=== PATIENT | female | born 1975 | race Caucasian/White ===

== ENCOUNTER 2020-08-20 02:51 | Inpatient (IN) ==
[2020-08-20] MEDS ORDERED: NICOTINE 21 MG/24 HR PATCH TRANSDERM PRN (06:09)
[2020-08-20] MEDS ORDERED: ONDANSETRON 4 MG/2 ML VIAL IV PRN (06:09)
[2020-08-20] MEDS ORDERED: DEXTROSE 50% 25 GM/50 ML VIAL IV PRN ×2 (06:09→07:42)
[2020-08-20] MEDS ORDERED: hydrALAZINE 20 MG/1 ML VIAL IV PRN (06:09)
[2020-08-20] MEDS ORDERED: guaiFENesin/DM ER 600-30 MG TABLET PO PRN (06:09)
[2020-08-20] MEDS ORDERED: MORPHINE 4 MG/1 ML VIAL IV PRN (06:09)
[2020-08-20] MEDS ORDERED: diphenhydrAMINE CAP 25 MG CAPSULE PO PRN (06:09)
[2020-08-20] MEDS ORDERED: GLUCAGON 1 MG VIAL IM PRN ×2 (06:09→07:42)
[2020-08-20 06:57] LABS: Basophils % 0.3 % (0.0-0.8); Eosinophils % 0.1 % (0.00-10.9); Hematocrit 24.3 VOL% (35.7-47.0); Hemoglobin 8.2 GM/DL (12.0-16.0); Immature Granulocytes % 0.4 %; Immature Granulocytes Absolute 0.06 #; Lymphocytes # 3.4 10*3/uL (1.4-4.0); Lymphocytes % 24.7 % (21.3-54.2); Mean Corpuscular HGB Conc 33.7 GM/DL (32-36); Mean Corpuscular Volume 93.8 FL (87-102); Mean Platelet Volume 9.8 FL (9.6-12.0); Monocytes % 4.7 % (1.7-12.7); Neutrophils % 69.8 % (38.7-73.9); Platelet Count 256 T/CUMM (130-400); Red Blood Count 2.59 MC/CUMM (3.8-5.5); White Blood Count 13.8 T/CUMM (4-12)
[2020-08-20 07:09] LABS: Calcium 8.1 MG/DL (8.5-10.1); Osmolality,Calculated 286.1 MOS/KG (273-304); PT Patient Result 11.6 SECS (10.5-12.0); Partial Thromboplastin Time 20.8 SECS (23.9-33.8); Potassium 3.8 MMOL/L (3.5-5.1)
[2020-08-20 07:12] LABS: Alanine Aminotransferase 15 U/L (13-56); Albumin 2.8 G/DL (3.4-5.0); Alkaline Phosphatase 30 U/L (45-117); Aspartate Amino Transferase 12 U/L (0-37); Bilirubin,Direct < 0.100 MG/DL (0.0-0.20); Bilirubin,Indirect 0.4 MG/DL (0.0-1.0); Total Protein 5.2 G/DL (6.4-8.2)
[2020-08-20 08:39] LABS: Hematocrit 24.2 VOL% (35.7-47.0)
[2020-08-20] MEDS: PANTOPRAZOLE INJ 200 MG in SODIUM CHLORIDE 0.9% 250 ML IV SCH (08:56)
[2020-08-20] MEDS: DEXT 5% NACL 0.9% KCL 20 MEQ 20 MEQ/1,000 ML BAG IV SCH ×2 (08:56→21:13)
[2020-08-20] MEDS ORDERED: FAMOTIDINE 20 MG/2 ML VIAL IV SCH (09:00)
[2020-08-20 20:06] LABS: Hematocrit 20.9 VOL% (35.7-47.0)
[2020-08-21 07:34] LABS: Basophils % 0.4 % (0.0-0.8); Eosinophils # 0.2 10*3/uL (0.0-0.87); Immature Granulocytes % 0.4 %; Immature Granulocytes Absolute 0.03 #; Lymphocytes # 2.6 10*3/uL (1.4-4.0); Mean Corpuscular HGB Conc 34.5 GM/DL (32-36); Mean Corpuscular Volume 95.2 FL (87-102); Mean Platelet Volume 10.1 FL (9.6-12.0); Monocytes % 6.4 % (1.7-12.7); Neutrophils % 58.8 % (38.7-73.9); Platelet Count 196 T/CUMM (130-400); Red Blood Count 1.86 MC/CUMM (3.8-5.5); Red Cell Distribution Width 12.3 % (9.3-17.3)
[2020-08-21 07:38] LABS: Hematocrit 17.7 VOL% (35.7-47.0); Hemoglobin 6.1 GM/DL (12.0-16.0)
[2020-08-21] MEDS ORDERED: SODIUM CHLORIDE 0.9% 1,000 ML IV PRN (07:42)
[2020-08-21] MEDS: ESCITALOPRAM 10 MG TABLET PO SCH (08:52)
[2020-08-21 09:05] LABS: Calcium 7.6 MG/DL (8.5-10.1)
[2020-08-21 09:09] LABS: Osmolality,Calculated 286.8 MOS/KG (273-304); Potassium 4.4 MMOL/L (3.5-5.1)
[2020-08-21 09:29] LABS: Hematocrit 17.6 VOL% (35.7-47.0); Hemoglobin 5.8 GM/DL (12.0-16.0)
[2020-08-21] MEDS ORDERED: LIDOCAINE 2% 5 ML VIAL ONE (14:17)
[2020-08-21] MEDS ORDERED: ETOMIDATE 20 MG/10 ML VIAL IV ONE (14:17)
[2020-08-21] MEDS ORDERED: propofoL 200 MG/20 ML VIAL IV ONE (14:17)
[2020-08-21] MEDS: BISACODYL 5 MG TABLET PO SCH ×2 (17:20→21:42)
[2020-08-21] MEDS: PANTOPRAZOLE INJ 200 MG in SODIUM CHLORIDE 0.9% 250 ML IV SCH (17:20)
[2020-08-21] MEDS: DEXT 5% NACL 0.9% KCL 20 MEQ 20 MEQ/1,000 ML BAG IV SCH (17:21)
[2020-08-21 17:49] LABS: Hematocrit 27.7 VOL% (35.7-47.0); Hemoglobin 9.3 GM/DL (12.0-16.0)
[2020-08-21] MEDS ORDERED: POLYETHYLENE GLYCOL POWDER 255 GM BOTTLE PO ONE (18:00)
[2020-08-21 20:09] LABS: Hematocrit 26.7 VOL% (35.7-47.0); Hemoglobin 8.9 GM/DL (12.0-16.0)
[2020-08-21] MEDS ORDERED: MAGNESIUM CITRATE 300 ML BOTTLE PO ONE (21:00)
[2020-08-22] MEDS: DEXT 5% NACL 0.9% KCL 20 MEQ 20 MEQ/1,000 ML BAG IV SCH ×2 (01:06→06:22)
[2020-08-22] MEDS: BISACODYL 5 MG TABLET PO SCH (05:41)
[2020-08-22 06:00] LABS: Calcium 7.3 MG/DL (8.5-10.1)
[2020-08-22 06:15] LABS: Osmolality,Calculated 288.7 MOS/KG (273-304); Potassium 3.8 MMOL/L (3.5-5.1)
[2020-08-22] MEDS: LACTATED RINGERS 1,000 ML IV SCH (07:02)
[2020-08-22 07:27] LABS: Hematocrit 23.1 VOL% (35.7-47.0); Hemoglobin 7.6 GM/DL (12.0-16.0)
[2020-08-22] MEDS ORDERED: fentaNYL 100 MCG/2 ML VIAL ONE (08:04)
[2020-08-22] MEDS ORDERED: LIDOCAINE 2% 5 ML VIAL ONE (08:04)
[2020-08-22] MEDS ORDERED: propofoL 200 MG/20 ML VIAL IV ONE (08:04)
[2020-08-22] MEDS: ESCITALOPRAM 10 MG TABLET PO SCH (10:07)
[2020-08-22 10:17] LABS: Basophils % 0.2 % (0.0-0.8); Eosinophils # 0.1 10*3/uL (0.0-0.87); Eosinophils % 1.1 % (0.00-10.9); Hematocrit 24.4 VOL% (35.7-47.0); Immature Granulocytes % 0.8 %; Lymphocytes % 16.6 % (21.3-54.2); Mean Corpuscular HGB Conc 32.8 GM/DL (32-36); Mean Corpuscular Volume 96.8 FL (87-102); Mean Platelet Volume 9.7 FL (9.6-12.0); Monocytes % 4.2 % (1.7-12.7); Neutrophils % 77.1 % (38.7-73.9); Platelet Count 247 T/CUMM (130-400); Red Blood Count 2.52 MC/CUMM (3.8-5.5); Red Cell Distribution Width 13.8 % (9.3-17.3); White Blood Count 12.3 T/CUMM (4-12)
[2020-08-22 10:48] LABS: % Iron Saturation 12.3 % (18-50); Ferritin 14.8 ng/ml (8-252)
[2020-08-22 11:04] LABS: Folate 16.41 NG/ML (5.38-24.0); Vitamin B12 298 PG/ML (211-911)
[2020-08-22 11:24] LABS: Sedimentation Rate-Westergren 11 MM/HR (0-20)
[2020-08-23] MEDS: PANTOPRAZOLE INJ 200 MG in SODIUM CHLORIDE 0.9% 250 ML IV SCH ×2 (01:15→11:49)
[2020-08-23] MEDS: DEXT 5% NACL 0.9% KCL 20 MEQ 20 MEQ/1,000 ML BAG IV SCH ×4 (01:15→17:19)
[2020-08-23] MEDS: LACTATED RINGERS 1,000 ML IV SCH (06:32)
[2020-08-23 06:50] LABS: Basophils % 0.3 % (0.0-0.8); Eosinophils # 0.4 10*3/uL (0.0-0.87); Eosinophils % 4.6 % (0.00-10.9); Immature Granulocytes % 0.6 %; Immature Granulocytes Absolute 0.05 #; Lymphocytes # 2.5 10*3/uL (1.4-4.0); Lymphocytes % 28.3 % (21.3-54.2); Mean Corpuscular Volume 96.4 FL (87-102); Mean Platelet Volume 10.1 FL (9.6-12.0); Monocytes % 4.7 % (1.7-12.7); Neutrophils % 61.5 % (38.7-73.9); Red Cell Distribution Width 14.5 % (9.3-17.3); White Blood Count 8.7 T/CUMM (4-12)
[2020-08-23 07:03] LABS: Calcium 7.3 MG/DL (8.5-10.1); Osmolality,Calculated 290.4 MOS/KG (273-304); Potassium 3.9 MMOL/L (3.5-5.1)
[2020-08-23 07:05] LABS: Platelet Count 197 T/CUMM (130-400); Red Blood Count 1.65 MC/CUMM (3.8-5.5)
[2020-08-23 07:07] LABS: Hemoglobin 5.4 GM/DL (12.0-16.0)
[2020-08-23 07:08] LABS: Hematocrit 15.9 VOL% (35.7-47.0)
[2020-08-23] MEDS ORDERED: SODIUM CHLORIDE 0.9% 1,000 ML IV PRN (07:10)
[2020-08-23] MEDS ORDERED: BUTALBITAL/ACETAMIN/CAFFEINE 50-325-40 MG TABLET PO PRN (08:05)
[2020-08-23 08:53] LABS: Hemoglobin A1 (Alkaline) 97.6 % (96.5-98.5); Hemoglobin A2 (Alkaline) 2.4 % (1.5-3.5)
[2020-08-23] MEDS: ESCITALOPRAM 10 MG TABLET PO SCH (11:48)
[2020-08-23 22:35] LABS: Hemoglobin 9.9 GM/DL (12.0-16.0)
[2020-08-24 06:04] LABS: Basophils # 0.1 10*3/uL (0.0-0.2); Basophils % 0.5 % (0.0-0.8); Eosinophils # 0.5 10*3/uL (0.0-0.87); Eosinophils % 5.4 % (0.00-10.9); Hemoglobin 9.7 GM/DL (12.0-16.0); Immature Granulocytes % 0.6 %; Immature Granulocytes Absolute 0.06 #; Lymphocytes # 2.3 10*3/uL (1.4-4.0); Lymphocytes % 24.3 % (21.3-54.2); Mean Corpuscular HGB Conc 33.4 GM/DL (32-36); Mean Corpuscular Volume 89.8 FL (87-102); Mean Platelet Volume 9.9 FL (9.6-12.0); Monocytes % 5.2 % (1.7-12.7); NRBC # 0.03 10*3/uL; Platelet Count 189 T/CUMM (130-400); Red Blood Count 3.23 MC/CUMM (3.8-5.5); Red Cell Distribution Width 16.9 % (9.3-17.3); White Blood Count 9.5 T/CUMM (4-12)
[2020-08-24 06:06] LABS: Hemoglobin 9.6 GM/DL (12.0-16.0)
[2020-08-24 06:22] LABS: Calcium 7.7 MG/DL (8.5-10.1); Osmolality,Calculated 282.8 MOS/KG (273-304); Potassium 4.1 MMOL/L (3.5-5.1)
[2020-08-24] MEDS: DEXT 5% NACL 0.9% KCL 20 MEQ 20 MEQ/1,000 ML BAG IV SCH ×2 (06:41→23:24)
[2020-08-24] MEDS: PANTOPRAZOLE INJ 200 MG in SODIUM CHLORIDE 0.9% 250 ML IV SCH ×2 (06:41→10:27)
[2020-08-24] MEDS: LACTATED RINGERS 1,000 ML IV SCH ×2 (07:58→08:09)
[2020-08-24] MEDS ORDERED: propofoL 200 MG/20 ML VIAL IV ONE ×2 (08:42→08:55)
[2020-08-24] MEDS ORDERED: LIDOCAINE 2% 5 ML VIAL ONE ×2 (08:42→08:55)
[2020-08-24] MEDS: ESCITALOPRAM 10 MG TABLET PO SCH (10:20)
[2020-08-24] MEDS ORDERED: ACETAMINOPHEN 325 MG TABLET PO PRN (11:34)
[2020-08-24] MEDS ORDERED: traMADol 50 MG TABLET PO PRN (12:01)
[2020-08-24] MEDS: GABAPENTIN 100 MG CAPSULE PO SCH ×2 (16:12→20:31)
[2020-08-24 18:40] LABS: Hematocrit 28.8 VOL% (35.7-47.0); Hemoglobin 9.5 GM/DL (12.0-16.0)
[2020-08-25 06:27] LABS: Hematocrit 28.9 VOL% (35.7-47.0); Hemoglobin 9.6 GM/DL (12.0-16.0)
[2020-08-25 06:44] LABS: Calcium 7.7 MG/DL (8.5-10.1); Osmolality,Calculated 283.8 MOS/KG (273-304); Potassium 4.4 MMOL/L (3.5-5.1)
[2020-08-25] MEDS: LACTATED RINGERS 1,000 ML IV SCH (07:04)
[2020-08-25] MEDS ORDERED: PANTOPRAZOLE 40 MG TABLET PO SCH (07:30)
[2020-08-25] MEDS: GABAPENTIN 100 MG CAPSULE PO SCH (09:46)
[2020-08-25] MEDS: ESCITALOPRAM 10 MG TABLET PO SCH (09:46)
[2020-08-25 11:58] VITALS: BP 127/73
== END 2020-08-25 12:40 | disposition home or self-care (01) | DRG 378 ==
LOC: N.3E → OBSVTOIN 04:22 → SUATTDRO 04:22
PROVIDERS: ADMIT Internal Medicine; ATTEND Internal Medicine